=== PATIENT | female | born 1990 | race Caucasian/White ===

== ENCOUNTER 2019-11-07 13:58 | Outpatient (REF) | payer MEDICAID, SELFPAY | END 2019-11-07 13:59 | disposition home or self-care (01) | LOC: HO.LAB 13:58 | PROVIDERS: PCP Nurse Practitioner Primary Care; Visit Provider Internal Medicine | DX: Z20.828 Contact with and (suspected) exposure to other viral communicable diseases (principal) | CPT/HCPCS: 36415; 87635 ==

== ENCOUNTER → 2019-11-12 12:34 | Outpatient (BNVA) | payer MEDICAID, SELFPAY | PROVIDERS: PCP Nurse Practitioner Primary Care; Referring Provider Nurse Practitioner Primary Care; Visit Provider Internal Medicine Cardiovascular Disease | DX: R01.1 Cardiac murmur, unspecified (principal); R00.2 Palpitations; R42 Dizziness and giddiness; R07.9 Chest pain, unspecified | CPT/HCPCS: 99204 ==

== ENCOUNTER → 2019-12-12 10:21 | Outpatient (REF) | payer MEDICAID, SELFPAY ==
--- NOTE | 2019-12-12 10:26 | ECG_ITS ---
Hook-up date: 2019-12-12 10:38:00 Duration: 47:59:00 Test Indications: PALPITATIONS Medications: [id number] QRS complexes * Ventricular ectopics which represent % of total QRS comp. 7 Supraventricular ectopics which represent <1 % of total QRS comp. * Paced QRS complexs which represent % of total QRS comp. VENTRICULAR ECTOPY * Isolated * Bigeminal Cycles * Couplets * Runs * Beats in Runs * Beats LONGEST at * BPM at :: -- * Beats FASTEST at * BPM at :: -- SUPRAVENTRICULAR ECTOPY 7 Isolated 0 Couplets 0 Runs 0 Beats in Runs * Beats LONGEST at * BPM at :: -- * Beats FASTEST at * BPM at :: -- HEART RATES 50 MIN at 04:49:09 2019-12-14 85 AVG 157 MAX at 21:58:34 2019-12-12 LONGEST RR 1.4000 secs at 01:30:55 2019-12-14 S-T LEVELS Channel 1 - 128 mm at 10:38:00 2019-12-12 - 128 mm at 10:38:00 2019-12-12 Channel 2 - 128 mm at 10:38:00 2019-12-12 - 128 mm at 10:38:00 2019-12-12 Channel 3 - 128 mm at 02:95:71 -- - 128 mm at 02:95:71 Basic rhythm Normal sinus rhythm No long pause or profound bradycardia Rare Premature atrial complexes Patient reported multiple symptoms correlated with NSR Referred By: Jaron Angel Overread By: NEENA ELIZALDE MD
== END ==
LOC: HO.CARD 10:21
PROVIDERS: Visit Provider Internal Medicine Cardiovascular Disease
DX: R00.2 Palpitations (principal)
CPT/HCPCS: 93225; 93226

== ENCOUNTER 2020-02-25 11:11 | Outpatient (REF) | payer MEDICAID, SELFPAY | END 2020-02-25 11:12 | disposition home or self-care (01) | LOC: HO.LAB 11:11 | PROVIDERS: PCP Nurse Practitioner Primary Care; Visit Provider Internal Medicine | DX: Z20.822 Contact with and (suspected) exposure to COVID-19 (principal) | CPT/HCPCS: 36415; C9803; U0003 ==

== ENCOUNTER 2020-11-29 13:41 | Outpatient (REF) | payer MEDICAID, SELFPAY ==
--- NOTE | ~2020-11-29 | XR_ITS ---
EXAMINATION: XR CHEST CLINICAL INFORMATION: Screening for respiratory tuberculosis. COMPARISON: 10/01/2019 TECHNIQUE: 2 views of the chest were obtained. FINDINGS: The lungs are well expanded. There is no focal consolidation, edema, or effusion. No pneumothorax. The cardiomediastinal silhouette is within normal limits. No acute osseous abnormality. XR/XR chest 2V IMPRESSION: Clear lungs.
== END 2020-11-29 13:42 | disposition home or self-care (01) ==
LOC: HO.XRAY 13:41
PROVIDERS: PCP Nurse Practitioner Primary Care; Visit Provider Nurse Practitioner Primary Care
DX: Z11.1 Encounter for screening for respiratory tuberculosis (principal)
CPT/HCPCS: 71046